=== PATIENT | male | born 1985 | race Caucasian/White ===

== ENCOUNTER 2020-09-05 11:06 | Emergency (ER) | payer OTHER ==
[2020-09-05] MEDS ORDERED: Sodium Chloride 0.9% 1,000 ML IV STA (11:33)
[2020-09-05] MEDS ORDERED: Ondansetron 4 MG/2 ML SDV IVPUSH ONE (11:33)
[2020-09-05] MEDS ORDERED: Ketorolac 30 MG/ML SDV IVPUSH ONE (11:33)
[2020-09-05] MEDS ORDERED: Sodium Chloride 0.9% 10 ML Syringe FLUSH PRN (11:33)
[2020-09-05] MEDS ORDERED: HYDROmorphone 0.5 MG/0.5 ML Syringe IVPUSH ONE (11:33)
--- NOTE | 2020-09-05 11:43 | EDM.PDOC ---
ED HPI GENERAL MEDICAL PROBLEM - General Chief Complaint: Genitourinary Problem Stated Complaint: ABDOMINAL PAIN Time Seen by Provider: 09/05/20 11:23 Source of Information: Reports: Patient, RN Notes Reviewed History Limitations: Reports: No Limitations - History of Present Illness INITIAL COMMENTS - FREE TEXT/NARRATIVE: Patient is a 35-year-old male presenting to the emergency department complaints of acute onset of right lower quadrant abdominal pain radiating down into his right groin. He states the pain occurred abruptly and is quite intense. He voided upon arrival to ER and states the pain that has improved. He describes a sensation of waxing and waning of the pain. Denies significant flank pain. Denies any obvious hematuria. Patient does have a history of kidney stones with his last being about 3 years ago. Right Lower Abdomen Pain Score (Numeric/FACES): 8 - Related Data Allergies Allergy/AdvReac Type Severity Reaction Status Date / Time No Known Allergies Allergy Verified 09/05/20 11:23 Home Meds: Home Meds . [No Known Home Meds] 09/05/20 [History] Past Medical History - Past Health History Medical/Surgical History: Denies Medical/Surgical History Genitourinary History: Reports: Renal Calculus Social & Family History - Tobacco Use Tobacco Use Status *Q: Current Every Day Tobacco User Years of Tobacco use: 10 Packs/Tins Daily: 1 - Caffeine Use Caffeine Use: Reports: Coffee - Recreational Drug Use Recreational Drug Use: No ED ROS GENERAL - Review of Systems Review Of Systems: See Below Constitutional: Reports: No Symptoms. Denies: Fever, Chills HEENT: Reports: No Symptoms Respiratory: Reports: No Symptoms Cardiovascular: Reports: No Symptoms Endocrine: Reports: No Symptoms GI/Abdominal: Reports: Abdominal Pain (RLQ radiating to groin). Denies: Diarrhea, Nausea, Vomiting : Reports: No Symptoms Musculoskeletal: Reports: No Symptoms Skin: Reports: No Symptoms Neurological: Reports: No Symptoms Psychiatric: Reports: No Symptoms Hematologic/Lymphatic: Reports: No Symptoms Immunologic: Reports: No Symptoms ED EXAM, RENAL/ - Physical Exam Exam: See Below General Appearance: Alert, WD/WN, No Apparent Distress Respiratory/Chest: No Respiratory Distress, Lungs Clear, Normal Breath Sounds, No Accessory Muscle Use, Chest Non-Tender Cardiovascular: Normal Peripheral Pulses, Regular Rate, Rhythm, No Edema, No Gallop, No JVD, No Murmur, No Rub GI/Abdominal: Normal Bowel Sounds, Soft, Non-Tender, No Organomegaly, No Distention, No Abnormal Bruit, No Mass Back Exam: Normal Inspection, Full Range of Motion, CVA Tenderness (R) (minimal) Neurological: Alert, Oriented, CN II-XII Intact, Normal Cognition, Normal Gait, Normal Reflexes, No Motor/Sensory Deficits Psychiatric: Normal Affect, Normal Mood Skin Exam: Warm, Dry, Intact, Normal Color, No Rash Course - Vital Signs Last Recorded V/S: Last Vital Signs Temp 97 F 09/05/20 11:21 Pulse 82 09/05/20 13:00 Resp 16 09/05/20 13:00 BP 132/88 09/05/20 13:00 Pulse Ox 97 09/05/20 13:00 - Orders/Labs/Meds Labs: Laboratory Tests 09/05/20 09/05/20 09/05/20 Range/Units 11:29 11:40 11:40 WBC 8.97 (4.23-9.07) K/mm3 RBC 5.45 (4.63-6.08) M/mm3 Hgb 16.0 (13.7-17.5) gm/dl Hct 47.5 (40.1-51.0) % MCV 87.2 (79.0-92.2) fl MCH 29.4 (25.7-32.2) pg MCHC 33.7 (32.2-35.5) g/dl RDW Std Deviation 42.5 (35.1-43.9) fL Plt Count 223 (163-337) K/mm3 MPV 10.0 (9.4-12.3) fl Neut % (Auto) 69.8 H (34.0-67.9) % Lymph % (Auto) 21.2 L (21.8-53.1) % [place] % (Auto) 4.1 L (5.3-12.2) % Eos % (Auto) 2.5 (0.8-7.0) Baso % (Auto) 0.6 (0.1-1.2) % Neut # (Auto) 6.27 H (1.78-5.38) K/mm3 Lymph # (Auto) 1.90 (1.32-3.57) K/mm3 [place] # (Auto) 0.37 (0.30-0.82) K/mm3 Eos # (Auto) 0.22 (0.04-0.54) K/mm3 Baso # (Auto) 0.05 (0.01-0.08) K/mm3 Manual Slide Review Normal smear Sodium 142 (136-145) mEq/L Potassium 4.2 (3.5-5.1) mEq/L Chloride 105 (98-107) mEq/L Carbon Dioxide 25 (21-32) mEq/L Anion Gap 16.2 H (5-15) BUN 14 (7-18) mg/dL Creatinine 1.3 (0.7-1.3) mg/dL Est Cr Clr Drug Dosing 82.86 mL/min Estimated GFR (MDRD) > 60 (>60) mL/min BUN/Creatinine Ratio 10.8 L (14-18) Glucose 109 H (74-106) mg/dL Calcium 8.8 (8.5-10.1) mg/dL Total Bilirubin 0.4 (0.2-1.0) mg/dL AST 37 (15-37) U/L ALT 57 (16-63) U/L Alkaline Phosphatase 74 (46-116) U/L Total Protein 7.6 (6.4-8.2) g/dl Albumin 4.1 (3.4-5.0) g/dl Globulin 3.5 gm/dL Albumin/Globulin Ratio 1.2 (1-2) Urine Color Yellow (Yellow) Urine Appearance Clear (Clear) Urine pH 5.5 (5.0-8.0) Ur Specific [place] > or = 1.030 (1.005-1.030) Urine Protein Negative (Negative) Urine Glucose (UA) Negative (Negative) Urine Ketones Negative (Negative) Urine Occult Blood 2+ H (Negative) Urine Nitrite Negative (Negative) Urine Bilirubin Negative (Negative) Urine Urobilinogen 0.2 (0.2-1.0) Ur Leukocyte Esterase Negative (Negative) Urine RBC 5-10 H (0-5) /hpf Urine WBC 0-5 (0-5) /hpf Ur Epithelial Cells 0-5 (0-5) /hpf Urine Bacteria Rare (FEW) /hpf Urine Mucus Rare (FEW) /hpf Meds: Medications Discontinued Medications Generic Name Dose Route Start Last Admin Trade Name Freq PRN Reason Stop Dose Admin Hydromorphone HCl 0.5 mg 09/05/20 11:33 09/05/20 11:47 Hydromorphone 0.5 Mg/0.5 Ml Syringe IVPUSH 09/05/20 11:34 0.5 mg ONETIME ONE Administration Sodium Chloride 1,000 mls @ 999 mls/hr 09/05/20 11:33 09/05/20 11:46 Normal Saline IV 09/05/20 12:33 999 mls/hr NOW STA Administration Ketorolac Tromethamine 30 mg 09/05/20 11:33 09/05/20 11:46 Ketorolac 30 Mg/Ml Sdv IVPUSH 09/05/20 11:34 30 mg ONETIME ONE Administration Ondansetron HCl 4 mg 09/05/20 11:33 09/05/20 11:46 Ondansetron 4 Mg/2 Ml Sdv IVPUSH 09/05/20 11:34 4 mg ONETIME ONE Administration Sodium Chloride 10 ml 09/05/20 11:33 09/05/20 11:49 Sodium Chloride 0.9% 10 Ml Syringe FLUSH 10 ml ASDIRECTED PRN Administration Keep Vein Open - Re-Assessments/Exams Free Text/Narrative Re-Assessment/Exam: Patient is a 35-year-old male presenting to the emergency department with complaints of acute onset of right lower quadrant abdominal pain radiating to his groin. He states the pain was quite intense, however after arriving to ER, he voided and it has improved. On exam, his very minimal right-sided CVA tenderness. No abdominal tenderness. I have ordered blood work, urinalysis, and CT scan of the abdomen pelvis without contrast. We will start a bolus of NS, Zofran for nausea, and Dilaudid and Toradol for pain. 09/05/20 12:49 Hematology is grossly unremarkable. Urinalysis shows 2+ occult blood, and 5-10 RBCs. No signs of infection. CT scan of the abdomen pelvis shows no acute findings. Patient's pain has completely resolved. I suspect he had a small kidney stone which he passed when he voided which would explain the blood in his urine as well as the resolution of his pain. We will discharge him home. Discharge instructions as documented. Departure - Departure Time of Disposition: 12:49 Disposition: Home, Self-Care 01 Condition: Good Clinical Impression: Abdominal pain Qualifiers: Abdominal location: right lower quadrant Qualified Code(s): R10.31 - Right lower quadrant pain Hematuria Qualifiers: Hematuria type: unspecified type Qualified Code(s): R31.9 - Hematuria, unspecified - Discharge Information *PRESCRIPTION DRUG MONITORING PROGRAM REVIEWED*: No *COPY OF PRESCRIPTION DRUG MONITORING REPORT IN PATIENT EDUARDO: No Instructions: Abdominal Pain, Adult, [id number] Referrals: PCP,None [Primary Care Provider] - Forms: ED Department Discharge Additional Instructions: You were seen in the emergency department today for acute onset of right lower quadrant pain radiating into your groin. Symptoms improved after urinating. Work-up including blood work, urinalysis, and a CT scan were completed in ER. Results of your work-up found to be normal, with the exception that there was some microscopic blood in your urine. It is possible that she had a very small kidney stone which caused the pain but resolved when you urinated. This would explain the blood in your urine. There was no evidence of kidney stone on CT scan. Recommend increase fluids. Return to ER as needed. Sepsis Event Note (ED) - Evaluation Sepsis Screening Result: No Definite Risk
--- NOTE | 2020-09-05 12:22 | CT ---
CT abdomen and pelvis Technique: Multiple axial sections were obtained from above the dome of the diaphragm inferiorly through the pubic symphysis. Intravenous and oral contrast not utilized. Study was performed as a ureteral stone protocol. Comparison: No prior abdominal imaging is available. Findings: Both kidneys show no abnormal calcifications. No ureteral dilatation or ureteral stone is seen. Appendix is felt to be visualized and normal in size. Visualized lung bases showed nothing acute. Liver shows slight fatty infiltration. Spleen is normal in size. Adrenal glands show no nodule. Pancreas shows no discrete abnormality. Gallbladder contains no calcified gallstones. Abdominal aorta shows no aneurysm. No retroperitoneal adenopathy or mesenteric abnormalities are seen. No pelvic mass or adenopathy is appreciated. Very small fat-containing partial right inguinal hernia is noted. No free fluid or inflammatory change is appreciated. Bone window settings were reviewed which show disc space narrowing at L5-S1 with minimal spondylolisthesis and vacuum disc phenomena. Spondylolisthesis is due to bilateral spondylolytic defects. Impression: 1. Slight fatty infiltration within the liver. 2. 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 3. No renal calculi, ureteral dilatation or ureteral stone is seen. Nothing acute is seen within the abdomen. 4. Other incidental finding as noted above. Diagnostic code #2
== END 2020-09-05 13:00 | disposition home or self-care (01) ==
LOC: JD.ED 11:06
DX: R10.31 Right lower quadrant pain (principal); R31.9 Hematuria, unspecified; Z87.442 Personal history of urinary calculi; Z72.0 Tobacco use
CPT/HCPCS: 36415; 74176; 80053; 81001; 85025; 96374; 96375; 99284; J1170; J1885; J2405; J7030

== ENCOUNTER 2021-05-19 00:43 | Emergency (ER) | payer OTHER ==
--- NOTE | 2021-05-19 01:21 | EDM.PDOC ---
ED HPI GENERAL MEDICAL PROBLEM - General Chief Complaint: Respiratory Problem Stated Complaint: SOB/COVID SYMPTOMS Time Seen by Provider: 05/19/21 01:10 - History of Present Illness INITIAL COMMENTS - FREE TEXT/NARRATIVE: 36-year-old male presents the emergency room with breathing troubles loss of taste and smell and significant nasal congestion. This started Saturday now 4 days ago. He thought he was getting better for a day or 2 and then this last evening it was much worse. The patient suspects he has Covid but he has not been tested. Unfortunately he has not been vaccinated. He is not aware of any fevers or chills he is had no significant nausea and certainly no vomiting no change in bowel habits. Past medical history significant for kidney stones. However is not on any routine medications at this time. The patient does not drink excessively or use illicit drugs and he does not smoke. - Related Data Allergies Allergy/AdvReac Type Severity Reaction Status Date / Time No Known Allergies Allergy Verified 09/05/20 11:23 Home Meds: Home Meds . [No Known Home Meds] 09/05/20 [History] Past Medical History - Past Health History Medical/Surgical History: Denies Medical/Surgical History Genitourinary History: Reports: Renal Calculus Social & Family History - Caffeine Use Caffeine Use: Reports: Coffee ED ROS GENERAL - Review of Systems Review Of Systems: See Below Constitutional: Reports: Malaise, Weakness HEENT: Reports: Rhinitis, Other (Loss of taste and smell) Respiratory: Reports: No Symptoms Cardiovascular: Reports: No Symptoms Endocrine: Reports: No Symptoms GI/Abdominal: Reports: Other (Loss of taste and smell). Denies: No Symptoms, Abdominal Pain, Diarrhea, Nausea, Vomiting : Reports: No Symptoms Musculoskeletal: Reports: Other (Minimal aches and pains) Skin: Reports: No Symptoms Neurological: Reports: No Symptoms Psychiatric: Reports: No Symptoms Hematologic/Lymphatic: Reports: No Symptoms Immunologic: Reports: No Symptoms ED EXAM, GENERAL - Physical Exam Exam: See Below Exam Limited By: No Limitations General Appearance: Alert, No Apparent Distress Eye Exam: Bilateral Eye: Normal Inspection, PERRL Ears: Normal External Exam, Normal Canal, Hearing Grossly Normal, Normal TMs Nose: Clear Rhinorrhea Throat/Mouth: Normal Inspection, Normal Lips, Normal Teeth, Normal Gums, Normal Oropharynx, Normal Voice, No Airway Compromise Head: Atraumatic, Normocephalic Neck: Normal Inspection, Supple, Non-Tender, Full Range of Motion Respiratory/Chest: No Respiratory Distress, Lungs Clear, Normal Breath Sounds, No Accessory Muscle Use, Chest Non-Tender Cardiovascular: Normal Peripheral Pulses, Regular Rate, Rhythm, No Edema, No Gallop, No JVD, No Murmur, No Rub GI/Abdominal: Normal Bowel Sounds, Soft, Non-Tender, No Organomegaly, No Distention, No Abnormal Bruit, No Mass Back Exam: Normal Inspection, Full Range of Motion, NT Extremities: Normal Inspection, Non-Tender, No Pedal Edema Neurological: Alert, Oriented, Normal Cognition Psychiatric: Normal Affect, Normal Mood Lymphatic: No Adenopathy Course - Vital Signs Last Recorded V/S: Last Vital Signs Temp 36.3 C 05/19/21 00:54 Pulse 71 05/19/21 00:54 Resp 15 05/19/21 00:54 BP 158/99 H 05/19/21 00:54 Pulse Ox 96 05/19/21 00:54 - Orders/Labs/Meds Orders: Active Orders 24 hr Category Date Time Status Chest 1V Frontal [CR] Stat Exams 05/19/21 01:30 Taken Labs: Laboratory Tests 05/19/21 05/19/21 05/19/21 Range/Units 01:40 01:52 01:52 WBC 5.69 (4.23-9.07) K/mm3 RBC 5.47 (4.63-6.08) M/mm3 Hgb 16.4 (13.7-17.5) gm/dl Hct 48.3 (40.1-51.0) % MCV 88.3 (79.0-92.2) fl MCH 30.0 (25.7-32.2) pg MCHC 34.0 (32.2-35.5) g/dl RDW Std Deviation 41.9 (35.1-43.9) fL Plt Count 168 (163-337) K/mm3 MPV 9.6 (9.4-12.3) fl Neut % (Auto) 51.9 (34.0-67.9) % Lymph % (Auto) 31.8 (21.8-53.1) % [place] % (Auto) 9.8 (5.3-12.2) % Eos % (Auto) 4.6 (0.8-7.0) Baso % (Auto) 0.5 (0.1-1.2) % Neut # (Auto) 2.95 (1.78-5.38) K/mm3 Lymph # (Auto) 1.81 (1.32-3.57) K/mm3 [place] # (Auto) 0.56 (0.30-0.82) K/mm3 Eos # (Auto) 0.26 (0.04-0.54) K/mm3 Baso # (Auto) 0.03 (0.01-0.08) K/mm3 Sodium 137 (136-145) mEq/L Potassium 4.3 (3.5-5.1) mEq/L Chloride 101 (98-107) mEq/L Carbon Dioxide 30 (21-32) mEq/L Anion Gap 10.3 (5-15) BUN 22 H (7-18) mg/dL Creatinine 1.2 (0.7-1.3) mg/dL Est Cr Clr Drug Dosing 86.18 mL/min Estimated GFR (MDRD) > 60 (>60) mL/min BUN/Creatinine Ratio 18.3 H (14-18) Glucose 105 H (70-99) mg/dL Calcium 8.5 (8.5-10.1) mg/dL Ferritin (26-388) ng/ml Total Bilirubin 0.2 (0.2-1.0) mg/dL AST 23 (15-37) U/L ALT 44 (16-63) U/L Alkaline Phosphatase 65 (46-116) U/L Lactate Dehydrogenase 215 (85-227) U/L C-Reactive Protein <0.2 (<1.0) mg/dL Total Protein 7.1 (6.4-8.2) g/dl Albumin 3.8 (3.4-5.0) g/dl Globulin 3.3 gm/dL Albumin/Globulin Ratio 1.2 (1-2) SARS-CoV-2 RNA (YULIYA) Positive H (NEGATIVE) 05/19/21 Range/Units 01:52 WBC (4.23-9.07) K/mm3 RBC (4.63-6.08) M/mm3 Hgb (13.7-17.5) gm/dl Hct (40.1-51.0) % MCV (79.0-92.2) fl MCH (25.7-32.2) pg MCHC (32.2-35.5) g/dl RDW Std Deviation (35.1-43.9) fL Plt Count (163-337) K/mm3 MPV (9.4-12.3) fl Neut % (Auto) (34.0-67.9) % Lymph % (Auto) (21.8-53.1) % [place] % (Auto) (5.3-12.2) % Eos % (Auto) (0.8-7.0) Baso % (Auto) (0.1-1.2) % Neut # (Auto) (1.78-5.38) K/mm3 Lymph # (Auto) (1.32-3.57) K/mm3 [place] # (Auto) (0.30-0.82) K/mm3 Eos # (Auto) (0.04-0.54) K/mm3 Baso # (Auto) (0.01-0.08) K/mm3 Sodium (136-145) mEq/L Potassium (3.5-5.1) mEq/L Chloride (98-107) mEq/L Carbon Dioxide (21-32) mEq/L Anion Gap (5-15) BUN (7-18) mg/dL Creatinine (0.7-1.3) mg/dL Est Cr Clr Drug Dosing mL/min Estimated GFR (MDRD) (>60) mL/min BUN/Creatinine Ratio (14-18) Glucose (70-99) mg/dL Calcium (8.5-10.1) mg/dL Ferritin 175 (26-388) ng/ml Total Bilirubin (0.2-1.0) mg/dL AST (15-37) U/L ALT (16-63) U/L Alkaline Phosphatase (46-116) U/L Lactate Dehydrogenase (85-227) U/L C-Reactive Protein (<1.0) mg/dL Total Protein (6.4-8.2) g/dl Albumin (3.4-5.0) g/dl Globulin gm/dL Albumin/Globulin Ratio (1-2) SARS-CoV-2 RNA (YULIYA) (NEGATIVE) - Re-Assessments/Exams Free Text/Narrative Re-Assessment/Exam: 05/19/21 03:43 Labs reviewed they do not look that bad chest x-ray shows possible Covid-like infiltrates in each base very small and subtle. Findings discussed with the patient. We discussed the pros and cons of Regeneron at this point he would like to hold off. Departure - Departure Time of Disposition: 03:44 Disposition: Home, Self-Care 01 Clinical Impression: COVID-19 - Discharge Information Referrals: PCP,None [Primary Care Provider] - Forms: ED Department Discharge Additional Instructions: Return to the emergency room with any questions problems or worsening symptoms. Continue to push lots of fluids. Diet as tolerated. For your nasal irritation try the NeilMed sinus irrigation and we will see if this helps. Maintain social isolation for 10 days after the onset of symptoms or 4 days after you are absolutely symptom-free without the aid of any medication. What ever is longer. The health department may readvise you on this. Sepsis Event Note (ED) - Evaluation Sepsis Screening Result: No Definite Risk - Focused Exam Vital Signs: Vital Signs Temp Pulse Resp BP Pulse Ox 05/19/21 00:54 36.3 C 71 15 158/99 H 96 - My Orders Last 24 Hours: My Active Orders 05/19/21 01:30 Chest 1V Frontal [CR] Stat - Assessment/Plan Last 24 Hours: My Active Orders 05/19/21 01:30 Chest 1V Frontal [CR] Stat
--- NOTE | 2021-05-19 06:57 | CR ---
Chest: Frontal view of the chest was obtained. Comparison: No prior chest imaging is available. Heart size and mediastinum are normal. Lungs are clear with no acute parenchymal change. Bony structures show nothing acute. Impression: 1. Nothing acute is seen on frontal chest x-ray. Diagnostic code #1
== END 2021-05-19 03:59 | disposition home or self-care (01) ==
LOC: JD.ED 00:43
DX: U07.1 COVID-19 (principal)
CPT/HCPCS: 36415; 71045; 71045-26; 80053; 82728; 83615; 85025; 86140; 99283-25; U0002

== ENCOUNTER 2021-08-24 14:41 | Emergency (ER) | payer OTHER ==
[2021-08-24] MEDS ORDERED: Diphtheria,Pertussis(Acell),Tetanus Vaccine 0.5 ML Syringe IM ONE (14:51)
[2021-08-24] MEDS ORDERED: HYDROmorphone 1 MG/ML Syringe IM ONE (14:57)
== END 2021-08-24 16:23 | disposition home or self-care (01) ==
LOC: JD.ED 14:41
DX: S67.192A Crushing injury of right middle finger, initial encounter (principal); K21.9 Gastro-esophageal reflux disease without esophagitis; Z72.0 Tobacco use; Z23 Encounter for immunization; W23.0XXA Caught, crushed, jammed, or pinched between moving objects, initial encounter
CPT/HCPCS: 73130; 90471; 90715; 96372; 99283; J1170